=== PATIENT | female | born 1985 | race Caucasian/White ===

== ENCOUNTER 2021-08-29 13:19 | Emergency (ER) | payer OTHER ==
[2021-08-29 13:46] VITALS: BP 118/82; PULSE 76; TEMP 97.8; BMI 24.5
[2021-08-29] MEDS ORDERED: ASPIRIN 81 MG CHEWABLE TABLETS PO ONE (15:50)
[2021-08-29] MEDS ORDERED: SODIUM CHLORIDE 0.9% 500 ML INFUS.BAG IV ONE (15:50)
[2021-08-29 16:01] LABS: BASO % 0.2 % (0-2.0); EOS % 0.7 % (0-4.5); HEMATOCRIT 38.3 % (32.4-45.2); HEMOGLOBIN 13.1 GM/dL (10.7-15.3); LYMPH % 30.5 % (8-40); MCH 27.2 pg (25.7-33.7); MCHC 34.1 g/dl (32.0-36.0); MEAN CELL VOLUME 79.7 fl (80-96); MEAN PLT VOLUME 8.4 fl (7.5-11.1); MONO % 4.8 % (3.8-10.2); NEUT % 63.8 % (42.8-82.8); PLATELET COUNT 226 10^3/uL (134-434); RBC 4.81 M/mm3 (3.60-5.2); RDW 14.4 % (11.6-15.6); WHITE BLOOD COUNT 6.2 K/mm3 (4.0-10.0)
[2021-08-29] MEDS ORDERED: ASPIRIN 81 MG CHEWABLE TABLETS ONE (16:02)
[2021-08-29 16:20] LABS: CALCIUM 9.3 mg/dL (8.5-10.1)
[2021-08-29 16:21] LABS: ALBUMIN 3.8 g/dl (3.4-5.0); BLOOD UREA NITROGEN 9.8 mg/dL (7-18)
[2021-08-29 16:24] LABS: CREATININE 0.8 mg/dL (0.55-1.3)
[2021-08-29 16:26] LABS: BILIRUBIN,TOTAL 0.4 mg/dL (0.2-1); TOT PROT 7.4 g/dl (6.4-8.2)
[2021-08-29 16:30] LABS: INR 1.04 (0.83-1.09)
== END 2021-08-29 19:10 | disposition home or self-care (01) ==
LOC: JER 13:19
DX: R07.9 Chest pain, unspecified (principal)
CPT/HCPCS: 36415; 71046-TC-FY; 80053; 84443; 84484; 85025; 85379; 85610; 85730; 93005; 93010; 99285-25

== ENCOUNTER 2023-12-29 19:55 | Emergency (ER) | payer OTHER ==
[2023-12-29 20:04] VITALS: BP 107/86; PULSE 72; RESP 18; TEMP 97.7; BMI 27.6
[2023-12-29] MEDS ORDERED: ASPIRIN 81 MG CHEWABLE TABLETS ONE (20:56)
[2023-12-29 21:02] LABS: BASO % 0.4 % (0-2.0); HEMATOCRIT 36.9 % (32.4-45.2); HEMOGLOBIN 12.4 GM/dL (10.7-15.3); LYMPH % 30.9 % (8-40); MCH 26.2 pg (25.7-33.7); MCHC 33.7 g/dl (32.0-36.0); MEAN CELL VOLUME 77.7 fl (80-96); MONO % 5.8 % (3.8-10.2); NEUT % 60.9 % (42.8-82.8); PLATELET COUNT 225 10^3/uL (134-434); RBC 4.75 M/mm3 (3.60-5.2); RDW 15.8 % (11.6-15.6); WHITE BLOOD COUNT 8.2 K/mm3 (4.0-10.0)
[2023-12-29] MEDS: ASPIRIN 81 MG CHEWABLE TABLETS PO ONE (21:03)
[2023-12-29 21:08] LABS: PH,URINE 6.5 (5.0-8.0); URINE APPEARANCE CLEAR; URINE BILIRUBIN NEGATIVE (NEGATIVE); URINE COLOR YELLOW; URINE GLUCOSE (UA) NEGATIVE (NEGATIVE); URINE KETONE NEGATIVE (NEGATIVE); URINE LEUK ESTERASE NEGATIVE (NEGATIVE); URINE NITRITE NEGATIVE (NEGATIVE); URINE PROTEIN NEGATIVE (NEGATIVE); URINE UROBILINOGEN 0.2 mg/dL (0.2-1.0)
[2023-12-29 21:20] LABS: CHLORIDE 106 mmol/L (98-107); POTASSIUM 3.8 mmol/L (3.5-5.1); SODIUM 140 mmol/L (136-145)
[2023-12-29 21:22] LABS: CALCIUM 9.1 mg/dL (8.5-10.1)
[2023-12-29 21:23] LABS: ALBUMIN 3.8 g/dl (3.4-5.0); ANION GAP 8 mmol/L (4-13); BLOOD UREA NITROGEN 14.5 mg/dL (7-18); CO2 26 mmol/L (21-32); GLUCOSE,RANDOM 96 mg/dL (74-106)
[2023-12-29 21:26] LABS: SGOT/AST 13 U/L (15-37); SGPT/ALT 33 U/L (13-61)
[2023-12-29 21:28] LABS: BILIRUBIN,TOTAL 0.4 mg/dL (0.2-1); TOT PROT 7.4 g/dl (6.4-8.2)
[2023-12-29 21:29] LABS: ALK PHOS 45 U/L (45-117)
[2023-12-29 21:53] LABS: INR 0.95 (0.83-1.09); PROTHROMBIN TIME (PATIENT) 10.9 SEC (9.7-13.0)
[2023-12-29 21:56] LABS: ACTIVATED PTT 31.6 SECONDS (25.2-36.5)
== END 2023-12-29 22:41 | disposition home or self-care (01) ==
LOC: JER 19:55
DX: R07.89 Other chest pain (principal); R42 Dizziness and giddiness; R11.0 Nausea
CPT/HCPCS: 36415; 71046-TC-FY; 80053; 81003; 82550; 83735; 84443; 84484; 84703; 85025; 85610; 85730; 93005; 93010; 99285-25